=== PATIENT | female | born 1990 | race Caucasian/White ===

== ENCOUNTER → 2023-12-30 08:18 | Outpatient (REF) | payer OTHER, SELFPAY | LOC: PNTC 08:18 | PROVIDERS: ATTENDING PHYSICIAN Obstetrics & Gynecology | DX: Z34.80 Encounter for supervision of other normal pregnancy, unspecified trimester (principal); O34.219 Maternal care for unspecified type scar from previous cesarean delivery; Z36.0 Encounter for antenatal screening for chromosomal anomalies; Z36.82 Encounter for antenatal screening for nuchal translucency | CPT/HCPCS: 76801; 76813 ==

== ENCOUNTER → 2024-04-10 16:02 | Outpatient (REF) | payer OTHER, SELFPAY | LOC: HWRCS 16:02 | PROVIDERS: ATTENDING PHYSICIAN Student in an Organized Health Care Education/Training Program | DX: R00.2 Palpitations (principal) | CPT/HCPCS: 93306 ==

== ENCOUNTER → 2024-05-19 07:34 | Outpatient (REF) | payer OTHER, SELFPAY | LOC: PNTC 07:34 | PROVIDERS: ATTENDING PHYSICIAN Obstetrics & Gynecology | DX: Z87.59 Personal history of other complications of pregnancy, childbirth and the puerperium (principal); O34.219 Maternal care for unspecified type scar from previous cesarean delivery | CPT/HCPCS: 76816; 93976 ==

== ENCOUNTER 2024-06-14 06:13 | Observation (INO) | payer OTHER, SELFPAY ==
[2024-06-14 06:35] VITALS: BMI 36.8
== END 2024-06-14 06:58 | disposition home or self-care (01) ==
LOC: LDRP 06:13
PROVIDERS: ADMITTING PHYSICIAN Student in an Organized Health Care Education/Training Program; FAMILY PHYSICIAN Family Medicine
DX: O36.8130 Decreased fetal movements, third trimester, not applicable or unspecified (principal); Z3A.36 36 weeks gestation of pregnancy; Z88.8 Allergy status to other drugs, medicaments and biological substances
CPT/HCPCS: 59025; 36415; 86850; 86900; 86901; G0378

== ENCOUNTER → 2024-06-16 13:30 | Outpatient (REF) | payer OTHER, SELFPAY | LOC: PNTC 13:30 | PROVIDERS: ATTENDING PHYSICIAN Obstetrics & Gynecology | DX: Z87.59 Personal history of other complications of pregnancy, childbirth and the puerperium (principal) | CPT/HCPCS: 76816 ==

== ENCOUNTER 2024-06-19 09:58 | Observation (INO) | payer OTHER, SELFPAY ==
[2024-06-19 10:08] VITALS: BP 132/75; BMI 37.6
[2024-06-19] MEDS: TYLENOL 1000 MG PO (10:11)
[2024-06-19 10:36] LABS: Hematocrit 33.6 % (37.0-47.0); Hemoglobin 11.3 g/dL (12.0-16.0); Mean Corp Hgb Conc. 33.6 g/dL (33.0-37.0); Mean Corpuscular Hgb 28.9 pg (27.0-31.0); Mean Corpuscular Volume 85.9 fL (81.0-99.0); Mean Platelet Volume 10.3 fL (7.4-10.4); Platelet Count 181 10^3/uL (130-400); Red Blood Cell Count 3.91 10^6/uL (4.20-5.40); Red Cell Dist. Width 13.4 % (11.5-14.5); White Blood Cell Count 10.6 10^3/uL (4.8-10.8)
[2024-06-19 10:54] LABS: ALT (SGPT) 17 U/L (0-35); AST (SGOT) 22 U/L (14-36); Albumin 3.8 g/dl (3.5-5.0); Alkaline Phosphatase 90 U/L (38-126); Blood Urea Nitrogen 9 mg/dl (7-17); Calcium 9.5 mg/dl (8.4-10.2); Carbon Dioxide 23 mmol/L (22-30); Chloride 103 mmol/L (98-107); Estimated Creatinine Clearance > 125 ml/min; Glucose 82 mg/dl (70-99); Sodium 134 mmol/L (135-145); Total Bilirubin 0.2 mg/dl (0.2-1.3); Total Protein 6.6 g/dl (6.3-8.2); eGFR > 60.00
[2024-06-19 11:11] LABS: Protein/creatinine Ratio 0.8; Urine Protein 16 mg/dl
== END 2024-06-19 13:00 | disposition home or self-care (01) ==
LOC: LDRP 09:58
PROVIDERS: ADMITTING PHYSICIAN Student in an Organized Health Care Education/Training Program
DX: O12.13 Gestational proteinuria, third trimester (principal); R51.9 Headache, unspecified; Z3A.37 37 weeks gestation of pregnancy; Z88.8 Allergy status to other drugs, medicaments and biological substances
CPT/HCPCS: 80053; 82570; 84156; 85027; G0378

== ENCOUNTER 2024-06-20 17:24 | Inpatient (IN) | payer OTHER, SELFPAY ==
[2024-06-20 17:36] VITALS: BP 149/78
[2024-06-20 18:17] LABS: Hemoglobin 11.4 g/dL (12.0-16.0); Mean Corp Hgb Conc. 34.5 g/dL (33.0-37.0); Mean Corpuscular Hgb 29.5 pg (27.0-31.0); Mean Corpuscular Volume 85.3 fL (81.0-99.0); Mean Platelet Volume 10.3 fL (7.4-10.4); Platelet Count 179 10^3/uL (130-400); Red Blood Cell Count 3.87 10^6/uL (4.20-5.40); Red Cell Dist. Width 13.4 % (11.5-14.5); White Blood Cell Count 9.8 10^3/uL (4.8-10.8)
[2024-06-20] MEDS: TYLENOL 1000 MG PO (18:26)
[2024-06-20] MEDS: ANCEF 10 IV (18:26)
[2024-06-20] MEDS: BICITRA 30 ML PO (18:26)
[2024-06-20] MEDS: LR 1000 IV ×2 (18:28→20:53)
[2024-06-20 18:50] LABS: ALT (SGPT) 17 U/L (0-35); AST (SGOT) 24 U/L (14-36); Albumin 3.6 g/dl (3.5-5.0); Alkaline Phosphatase 85 U/L (38-126); Blood Urea Nitrogen 5 mg/dl (7-17); Calcium 9.3 mg/dl (8.4-10.2); Carbon Dioxide 20 mmol/L (22-30); Chloride 105 mmol/L (98-107); Glucose 114 mg/dl (70-99); Potassium 3.5 mmol/L (3.5-5.1); Sodium 136 mmol/L (135-145); Total Bilirubin 0.2 mg/dl (0.2-1.3); Total Protein 6.4 g/dl (6.3-8.2); eGFR > 60.00
[2024-06-20] MEDS: PITOCIN 30 UNITS/NSS 500 ML IV (20:00)
[2024-06-20] MEDS: CYTOTEC 800 MCG RECTAL (20:47)
[2024-06-20] MEDS: TRANEXAMIC ACID 100 IV (21:05)
[2024-06-20 21:50] LABS: Hematocrit 33.8 % (37.0-47.0); Hemoglobin 11.1 g/dL (12.0-16.0); Mean Corp Hgb Conc. 32.8 g/dL (33.0-37.0); Mean Corpuscular Hgb 28.4 pg (27.0-31.0); Mean Corpuscular Volume 86.4 fL (81.0-99.0); Mean Platelet Volume 10.1 fL (7.4-10.4); Platelet Count 201 10^3/uL (130-400); Red Blood Cell Count 3.91 10^6/uL (4.20-5.40); Red Cell Dist. Width 13.5 % (11.5-14.5); White Blood Cell Count 13.8 10^3/uL (4.8-10.8)
[2024-06-21] MEDS: PERCOCET 5/325 1 TABLET PO ×4 (02:33→18:39)
[2024-06-21 05:13] LABS: Hematocrit 32.2 % (37.0-47.0); Hemoglobin 10.9 g/dL (12.0-16.0); Mean Corp Hgb Conc. 33.9 g/dL (33.0-37.0); Mean Corpuscular Hgb 28.9 pg (27.0-31.0); Mean Corpuscular Volume 85.4 fL (81.0-99.0); Mean Platelet Volume 10.9 fL (7.4-10.4); Platelet Count 199 10^3/uL (130-400); Red Blood Cell Count 3.77 10^6/uL (4.20-5.40); Red Cell Dist. Width 13.4 % (11.5-14.5); White Blood Cell Count 18.3 10^3/uL (4.8-10.8)
[2024-06-21] MEDS: TORADOL 15 MG IV ×3 (10:50→22:04)
--- NOTE | 2024-06-21 11:31 | W.PN.ANS.POP ---
Anesthesia Post Operative
- Anesthesia Post Op Note
Vital Signs Stable-See Nursing Note: Yes
Airway Patent: Yes
Adequate Pain Control: Yes
Change in Mental Status: No
Current Postoperative Nausea & Vomiting: No
Anesthesia Complications: No
General Anesthetic Recall: No
Unplanned Admission: No
Post Op Hydration Adequate: Yes
[2024-06-21] MEDS: PRENATAL PLUS 1 TABLET PO (22:00)
[2024-06-21] MEDS: SENOKOT-S 1 TABLET PO (22:11)
[2024-06-22] MEDS: TYLENOL 650 MG PO ×4 (02:46→18:17)
[2024-06-22] MEDS: MOTRIN 600 MG PO ×3 (05:50→18:17)
[2024-06-22] MEDS: PRENATAL PLUS 1 TABLET PO (22:07)
[2024-06-22] MEDS: SENOKOT-S 1 TABLET PO (22:07)
[2024-06-23] MEDS: TYLENOL 650 MG PO ×2 (00:27→06:35)
[2024-06-23] MEDS: MOTRIN 600 MG PO ×2 (00:27→06:35)
[2024-06-23 11:30] LABS: Syphilis/T. pallidum Ab Reflex Negative (Negative)
--- NOTE | 2024-06-23 13:47 | W.DS.TRANS ---
DC Summary - Front Desk Auxiliary
-
Discharge Instructions:
Discharge Diagnosis/Procedures delivered via section,
preeclampsia
Diet No restrictions
Activity No strenuous activity
Driving Restrictions No driving for 2 weeks
Bathing Restrictions OK to Shower
Instructions:
Stand-Alone Forms: LDRP Delivery
LDRP Hypertensive Disorders
Changes to Home Medications: No
Discharge Medications:
DC Medications w/original date entered in [employer]
vit no.95-ferrous fumarate 28 mg-folic acid 800 mcg tablet () 1 ea PO HS Supplement 01/29/20
acetaminophen 325 mg tablet 650 mg (2 x 325 mg) PO Q4HPRN PRN mild pain #1 tab 06/23/24
ibuprofen 600 mg tablet 600 mg PO Q6HPRN PRN cramps #90 tabs 06/23/24
sennosides 8.6 mg-docusate sodium 50 mg tablet 1 tab PO DAILYPRN PRN constipation #1 tab 06/23/24
Home Medication Changes
Pending Results: No
--- NOTE | 2024-06-23 13:48 | W.DCSUMMARY ---
Discharge Summary
Discharge Data
Date of Admission: 06/20/24
Date of Discharge: 06/23/24
-
Pending Results: No
Hospital Course
Patient is a 33yo who presented to Labor and Delivery on 06/20 with complaints of not feeling well, headache and elevated BP. Patient was found to have preeclampsia. Since she was >37wks, delivery was recommended. She had a history of 2 prior
sections. She had completed her family status and desired permanent sterilization. She underwent repeat low transverse section on 06/20, delivering a viable male infant. The procedure was uncomplicated. The QBL was 195mL. Bilateral
salpingectomy was not performed because there were adhesions to the ovary at the distal end of the tubes bilaterally. On, postoperative day one her hemoglobin was 10.9. She had no complaints. On postoperative day number 2, she was doing well.
Circumcision was performed on her male infant. On postoperative day three, she was meeting all of her postoperative milestones. She had no signs or symptoms of preeclampsia. She was voiding spontaneously, passing flatus and tolerating a regular
diet. She was stable for discharge home. Discharge instructions and return precautions were discussed and all questions answered prior to discharge. She was instructed to follow up in two weeks for an incision check. Strict preeclampsia precautions
were reviewed with the patient prior to discharge.
Discharge Plan
-
Patient Disposition: Home (Routine Discharge)
Discharge Diagnosis/Procedures: delivered via section, preeclampsia
Condition: Good
Diet: No restrictions
Activity: No strenuous activity
Driving Restrictions: No driving for 2 weeks
Bathing Restrictions: OK to Shower
Activity Restrictions/Additional Instructions:
Please call if BP >160/110, headaches not resolved with medications, chest pain, shortness of breath, vision changes, or pain in the upper abdomen.
Stand Alone Forms: LDRP Delivery, LDRP Hypertensive Disorders
Referrals:
Roberto Woodward MD [Active] - in two weeks
UNKNOWN - PT DOES,NOT KNOW [Family Provider] -
Prescriptions:
New
sennosides-docusate sodium 8.6-50 mg Tablet
1 tab PO DAILYPRN PRN (Reason: constipation) Qty: 1 0RF
ibuprofen 600 mg Tablet
600 mg PO Q6HPRN PRN (Reason: cramps) Qty: 90 0RF
acetaminophen 325 mg Tablet
650 mg PO Q4HPRN PRN (Reason: mild pain) Qty: 1 0RF
Continued
PNV cmb#95-ferrous fumarate-FA [] 1 EACH tablet
1 ea PO HS
Discharge Orders:
Discharge Patient (As Directed); Ordered 06/23/24
Ordered By: Jacey Flores
Discharge Date and Time
Discharge Date/Time: 06/23/24 11:21
Print Language: SAMOAN
== END 2024-06-23 11:21 | disposition home or self-care (01) | DRG 787 ==
LOC: LDRP 17:24
PROVIDERS: ADMITTING PHYSICIAN Obstetrics & Gynecology
PROC: 10D00Z1 Extraction of Products of Conception, Low, Open Approach (ICD-10-PCS; 2024-06-20)
DX: O14.94 Unspecified pre-eclampsia, complicating childbirth (principal); O99.354 Diseases of the nervous system complicating childbirth; O34.211 Maternal care for low transverse scar from previous cesarean delivery; G43.909 Migraine, unspecified, not intractable, without status migrainosus; O99.892 Other specified diseases and conditions complicating childbirth; N73.6 Female pelvic peritoneal adhesions (postinfective); Z37.0 Single live birth; Z3A.37 37 weeks gestation of pregnancy
CPT/HCPCS: 88307; 80053; 85027; 86780; 86850; 86900; 86901